=== PATIENT | female | born 1995 | race Caucasian/White ===

== ENCOUNTER 2016-09-25 08:06 | Outpatient (CLI) ==
[2015-12-07 09:37] VITALS: BMI 25.4
[2016-09-25 09:10] LABS: BASOPHILS % (AUTO) 0.7 % (0.0-3.0); EOSINOPHILS # (AUTO) 0.4 K/ul (0.0-0.7); EOSINOPHILS % (AUTO) 7.1 % (0.0-7.0); HEMOGLOBIN 11.3 g/dl (12.0-16.0); IMMATURE GRANULOCYTE % (AUTO) 0.2 % (0.0-5.0); LYMPHOCYTES # (AUTO) 1.8 K/uL (0.60-3.4); LYMPHOCYTES % (AUTO) 32.1 (10.0-50.0); MEAN CORPUSCULAR HEMOGLOBIN 27.3 pg (27.0-31.0); MEAN CORPUSCULAR HGB CONC 33.2 (31.8-35.4); MEAN CORPUSCULAR VOLUME 82.1 fl (81.0-99.0); MONOCYTES # (AUTO) 0.4 K/uL (0.4-2.0); MONOCYTES % (AUTO) 7.5 (0-10); NEUTROPHILS # (AUTO) 2.9 K/ul (2.0-6.9); NEUTROPHILS % (AUTO) 52.4; PLATELET COUNT 301 10^3/uL (140-440); RED BLOOD COUNT 4.14 10^6/ul (4.20-5.40); WHITE BLOOD COUNT 5.61 K/ul (4.6-10.2)
[2016-09-25 09:57] LABS: ALBUMIN 3.6 g/dL (3.4-5.0); ALBUMIN/GLOBULIN RATIO 1.09; BILIRUBIN,TOTAL 0.38 mg/dL (0.00-1.20); BUN/CREATININE RATIO 13.84; CALCIUM 9.2 mg/dL (8.2-10.2); CHOL/HDL RATIO 4.1 (4.5-5.5); CREATININE 0.65 mg/dL (0.60-1.30); TOTAL PROTEIN 6.9 g/dL (6.4-8.2)
--- NOTE | 2016-09-25 16:30 | MRI ---
EXAM: MRI lumbar spine without IV contrast. DATE: 09/25/2016. HISTORY: Low back pain. TECHNIQUE: Sagittal and axial T1W and T2W sequences of the lumbar spine along with sagittal IR and coronal T2W sequences were obtained using 1.2 Brianne magnet. No IV contrast. COMPARISON: Thoracolumbar scoliosis series [address] abdomen/pelvis 07 May 2012. FINDINGS: There are five [id number] lumbar vertebra. Alignment of the lumbar spine is normal. No acute lumbar fracture, subluxation, osseous malignancy, or pars interarticularis defect is iden tified. Lumbar vertebrae normal in height. Bone marrow signal is normal. Intervertebral discs are normal in height. No sacral fracture or stress reaction is apparent. SI joints are unremarkable. Conus medullaris terminates at L1-2. Visible spinal cord is normal. No retroperitoneal lymphadenopathy, paraspinal mass, or aortic aneurysm is detected. Paraspinal mus culature is symmetric bilaterally. Visible portions of the liver, gallbladder, spleen, adrenal glan ds and kidneys are normal. No bowel obstruction or neoplasm is evident. Segmental analysis: T11-12: Normal. T12-L1: Normal. L1-2: Normal. L2-3: Normal. L3-4: Normal. L4-5: Minimal disc bulge appears cause minor/mild bilateral foraminal narrowing. No central canal stenosis. L5-S1: Normal, except for minimal left foraminal narrowing due to short pedicles. IMPRESSIONS: 1. L-spine minor foraminal narrowing at L4-5 and L5-S1. No definitive nerve compression. 2. No lumbar spine central canal stenosis.
== END 2016-09-25 08:07 ==
LOC: RAD 08:06
PROVIDERS: ATTEND Nurse Practitioner Family
DX: M79.604 Pain in right leg (principal); M54.10 Radiculopathy, site unspecified; M54.5 Low back pain
CPT/HCPCS: 36415; 80053; 80061; 84443; 85025

== ENCOUNTER 2016-11-02 14:00 | Outpatient (RCR) ==
[2015-12-07 09:37] VITALS: BMI 25.4
--- NOTE | 2016-10-16 10:37 | RS.OPPTEV2 ---
Date of Note: 10/15/16 Visit #: 1 Date of Evaluation: 10/15/16 Payer Source: Medicaid Treatment Diagnosis: Low back pain History of Condition/Mechanism of Injury:: Patient reports low back and LE pain began with her first in 2014. States less than a year later, her second she had even worse pain. Prior Level of Function.....Patient was independent with: ADL's, Self Care, Work /Vocation, Caregiving, Ambulation/Mobility, Community Integration/Access Functional Limitations: Sleep, ADL's, Lifting, Sitting, Standing, Bending, Ambulation, Community Access/Integration Current Subjective/complaints:: Patient reports low back pain and aching into bilateral LE's. States leg discomfort goes all the way down to her feet. 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 Reports prolonged standing increases her pain and after being on her feet all day at work, she is ready to cry. States pain usually increases around 1-2 pm and then continues into the evening. States she does not have much time without pain. She has tried using a heating pad. She denies any tingling or numbness into the LE's. States she has noticed the feeling of weakness in her legs with prolonged standing. States she cannot tolerate laying on her back at night, has to lay on her side. States back pain limits her ability to sleep through the night. Medical History Surgical History: Tonsillectomy Smoking Status: Never smoker Diagnostic Testing/Imaging:: MRI lumbar spine w/o contrast. Date of service 09/25. Impression: "1. L-spine minor foraminal narrowing at L4-5 and L5-S1. No definitive nerve compression. 2. No lumbar spine central canal stenosis." Hx Home Medications: Tramadol, Neurontin Patient's Goals: Her goal is to get relief of back and LE pain. Pain Assessment - Pain Description Pain Location: low back and legs Pain Description: Aching, Chronic Current Pain Intensity: 4/10 Worst Pain Intensity: 10/10 Functional Outcome Measure Oswestry LBP: 56 - G Codes & Severity Modifier G Codes & Modifier: Na Source of G Code score: NA Observation - Observation Posture: Forward Head, Rounded Shoulders, Decreased Lumbar Lordosis Gait - Gait Pattern General Gait Pattern Observation: No Deviations/Normal - ROM Comments: Lumbar flexion, extension, and bilateral sidebending is WFL's. Demonstrates good mobility at lumbar spine. Patient reports increased discomfort in low back with extension. Bilateral LE AROM is WFL's. - Strength Comments: Trunk strength 4+/5. Bilateral LE strength is 5/5 throughout. - Special Tests KRISTAL Test: Negative Left, Negative Right SLR Test: Negative Left, Negative Right Seated Dural Stretch Test: Negative Left, Negative Right SI Joint Compression: Negative SI Joint Distraction: Negative Palpation Comments:: Patient reports no significant tenderness along the lumbar paraspinals, over the lumbar spine, SI joints, or superior gluteal musculature. Sensation - Sensation Right Lower Extremity: Intact/Normal Left Lower Extremity: Intact/Normal Additional Comments: Additional Comments: Bilateral SLR to 30-35 degrees. Leg lengths in long sitting and supine appear to be equal. Interventions - Exercise/Activities/Manual Therapy Exercises/Activities: Patient instructed in HS stretch, Piriformis stretch, and lower trunk rotation stretch for home. Manual Therapy: NA HOME EXERCISE PROGRAM: HS stretch, Piriformis stretch, and lower trunk rotation stretch - Charges Total Direct Minutes: 48 mins Total Treatment Time: 48 mins Procedures billed for this date of service:: EVAL Low X 3 Assessment Assessment: Patient presents to therapy with a diagnosis of chronic low back pain, lumbar foraminal stenosis, and bulging lumbar disc. She reports low back and LE pain. Describes pain more of an ache, rather than shooting pain. She demonstrates no symptoms today of disc related symptoms or SI joint dysfunction. She exhibits marked limitation of HS length bilaterally. She will benefit from stretching to bilateral HS and hips to decrease stress on the lumbar spine and enable her to tolerate standing activities with less pain. She will also benefit from from spinal strengthening and education of back safety. Patient Education: Education of diagnosis, Body/Joint mechanics, Home Exercise Program, Education of Plan of Care Rehab Potential: Good Short Term Goals Goal #1: Patient independent and compliant with HEP. Goal to be met by: 10/30/16 Goal #2: Bilateral SLR to 40-45 degrees. Goal to be met by: 10/30/16 Goal #3: LE pain decreased to occasional. Goal to be met by: 10/30/16 Prison Goals Goal #1: Pt knows HEP and to continue exercises to maintain functional level. Goal to be met by: 11/30/16 Goal #2: Score on Oswestry LBP scale improved to 26. Goal to be met by: 11/30/16 Goal #3: Pt will tolerate standing at work a full shift with minimal low back pain. Goal to be met by: 11/30/16 Goal #4: Pt to demonstrate good awareness of back safety and body mechanics. Goal to be met by: 11/30/16 Plan - Treatment to be Provided Procedures: Therapeutic Exercises, Therapeutic Activity, Manual Therapy, Patient Education Modalities: Electrical Stimulation, Ultrasound/Phonophoresis, Cryotherapy, Hot Packs, Mechanical Traction (lumbar) - Treatment Plan Frequency: 3 X week Duration: 4 weeks ORDER # VISITS AND/OR THROUGH DATE: 11/30/16 - Treatment Code (1) Low back pain Qualifiers: Chronicity: chronic Back pain laterality: bilateral Sciatica presence: unspecified whether sciatica present Qualified Description: Chronic bilateral low back pain, with sciatica presence unspecified Qualifier Code(s): (M54.5) Low back pain (2) Lumbar foraminal stenosis Comments: M99.83
--- NOTE | 2016-10-19 11:55 | RS.CXNS ---
Date of scheduled appointment: 10/19/16 Type: Cancel (Patient calls to cancel appointment. Does not give reason.)
--- NOTE | 2016-10-22 09:40 | RS.OPPTDN ---
Subjective Date of Note: 10/22/16 Visit #: 2 Date of Evaluation: 10/15/16 Payer Source: Medicaid Treatment Diagnosis: Low back pain Current Subjective/complaints:: Patients reports performing stretches seemd to aggravate pain. States she has more discomfort in the LE's than the lowback. States she notices an increase in pain at the end of the day, due to standing at work. Pain Assessment - Pain Description Pain Location: low back and legs Pain Description: Aching, Chronic Current Pain Intensity: 10 - Treatment Modality: Ultrasound Parameters/Method Applied: [id number] @ 1.5w/cm2 to the bilateral lumbar paraspinals prior to EX. Patient Position: Right Sidelying Interventions - Exercise/Activities/Manual Therapy Exercises/Activities: Assisted with stretching of hamstrings, piriformis, lower trunk rotation, and SKTC. Isometric hip adduction. Isometric hip flexion. Glut sets, abdominal sets. Total minutes of Exercise: 15mins Manual Therapy: NA HOME EXERCISE PROGRAM: HS stretch, Piriformis stretch, and lower trunk rotation stretch, isometric hip add, isometric hip flexion, glut sets, abd sets. - Charges Total Direct Minutes: 27mins Total Treatment Time: 30mins Procedures billed for this date of service:: US, EX Assessment: Patient with continued discomfort in LB and LE's, appears to be due to trunk weakness and long periods of standing at work. Patient Education: Education of diagnosis, Body/Joint mechanics, Home Exercise Program, Home Safety Comments: Patietn education of dx, body and spinal mechanics, and safe lifting. Patient demonstrates compliance with HEP?: Yes Short Term Goals Goal #1: Patient independent and compliant with HEP. Goal to be met by: 10/30/16 Progress towards Goal:: Progressing Goal #2: Bilateral SLR to 40-45 degrees. Goal to be met by: 10/30/16 Goal #3: LE pain decreased to occasional. Goal to be met by: 10/30/16 Product Director Goals Goal #1: Pt knows HEP and to continue exercises to maintain functional level. Goal to be met by: 11/30/16 Goal #2: Score on Oswestry LBP scale improved to 26. Goal to be met by: 11/30/16 Goal #3: Pt will tolerate standing at work a full shift with minimal low back pain. Goal to be met by: 11/30/16 Goal #4: Pt to demonstrate good awareness of back safety and body mechanics. Goal to be met by: 11/30/16 Plan PLAN OF CARE EXPIRES ON:: 11/30/16 ORDER # VISITS AND/OR THROUGH DATE: 11/30/16 PLAN: Progress Exercises (Continue modalities and progress exercise to reduce pain and increase functional activity level.)
--- NOTE | 2016-10-27 11:38 | RS.CXNS ---
Date of scheduled appointment: 10/27/16 Type: Cancel (Patient calls to cancel, no reason given. States she will attend next scheduled appointment on 10/30/16.)
--- NOTE | 2016-10-30 09:14 | RS.CXNS ---
Date of scheduled appointment: 10/30/16 Type: No Show
--- NOTE | 2016-11-02 15:35 | RS.OPPTDN ---
Subjective Date of Note: 11/02/16 Visit #: 3 Date of Evaluation: 10/15/16 Payer Source: Medicaid Treatment Diagnosis: Low back pain Current Subjective/complaints:: Patient says she thinks the exercises have been irritating her back. She says that she is not sure which one, but seems like her legs are really bothering her today. She says prolonged standing is the most aggravating to her. Pain Assessment - Pain Description Pain Location: low back and legs Pain Description: Aching, Chronic Current Pain Intensity: 5/10 - Treatment Modality: Ultrasound Parameters/Method Applied: continuous @ 1.5 w/cm2 x 12 mins to bilateral lumbar paraspinals Patient Position: Right Sidelying Interventions - Exercise/Activities/Manual Therapy Exercises/Activities: Assisted with stretching of hamstrings, piriformis, lower trunk rotation, and SKTC. Patient performs pillow squeezes. 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 Total minutes of Exercise: 15 Manual Therapy: NA HOME EXERCISE PROGRAM: HS stretch, Piriformis stretch, and lower trunk rotation stretch, isometric hip add, isometric hip flexion, glut sets, abd sets. - Charges Total Direct Minutes: 27 Total Treatment Time: 27 Procedures billed for this date of service:: u/s, ex Assessment: Patient experiencing increased pain to back and legs post exercise at last session. Gentler stretching today and easing back into trunk stability. Discussed better body mechanics and HEP/posture. Patient Education: Body/Joint mechanics, Home Exercise Program Short Term Goals Goal #1: Patient independent and compliant with HEP. Goal to be met by: 10/30/16 Progress towards Goal:: Progressing Goal #2: Bilateral SLR to 40-45 degrees. Goal to be met by: 10/30/16 Goal #3: LE pain decreased to occasional. Goal to be met by: 10/30/16 Prison Goals Goal #1: Pt knows HEP and to continue exercises to maintain functional level. Goal to be met by: 11/30/16 Goal #2: Score on Oswestry LBP scale improved to 26. Goal to be met by: 11/30/16 Goal #3: Pt will tolerate standing at work a full shift with minimal low back pain. Goal to be met by: 11/30/16 Goal #4: Pt to demonstrate good awareness of back safety and body mechanics. Goal to be met by: 11/30/16 Plan PLAN OF CARE EXPIRES ON:: 11/30/16 ORDER # VISITS AND/OR THROUGH DATE: 11/30/16 PLAN: Progress Exercises
== END 2016-11-07 ==
PROVIDERS: ATTEND Nurse Practitioner Family
DX: M54.5 Low back pain (principal); M99.83 Other biomechanical lesions of lumbar region; M51.26 Other intervertebral disc displacement, lumbar region

== ENCOUNTER 2017-02-03 22:14 | Outpatient (CLI) ==
[2016-09-25 08:10] VITALS: BMI 25.4
[2017-02-03 22:23] LABS: BILIRUBIN,URINE Negative (NEGATIVE); KETONES,URINE Negative (NEGATIVE); LEUKOCYTE ESTERASE ,URINE 2+ (NEGATIVE); NITRITE,URINE Negative (NEGATIVE); PH,URINE 6.5 (5-9); PROTEIN,URINE Negative (NEGATIVE); URINE, BLOOD 1+ (NEGATIVE)
[2017-02-03 22:33] LABS: ADD URINE MICROSCOPIC YES; BACTERIA,URINE TRACE (NOT PRESENT)
[2017-02-03 22:40] LABS: ALANINE AMINOTRANSFERASE 17 U/L (12-78); ALBUMIN 4.3 g/dL (3.4-5.0); ALBUMIN/GLOBULIN RATIO 1.08; ALKALINE PHOSPHATASE 91 U/L (42-98); ANION GAP 12.8; ASPARTATE AMINO TRANSFERASE 16 U/L (15-37); BILIRUBIN,TOTAL < 0.3 mg/dL (0.00-1.20); BLOOD UREA NITROGEN 7 mg/dL (7-18); BUN/CREATININE RATIO 10.44; CARBON DIOXIDE 25 mmol/L (21-32); CHLORIDE 107 mmol/L (98-107); CREATININE 0.67 mg/dL (0.60-1.30); GLUCOSE 78 mg/dL (70-110); POTASSIUM 3.8 mmol/L (3.5-5.10); SODIUM 141 mmol/L (136-145); TOTAL PROTEIN 8.3 g/dL (6.4-8.2)
== END 2017-02-03 22:15 | disposition home or self-care (01) ==
LOC: NONPT 22:14
PROVIDERS: ATTEND Nurse Practitioner Family
DX: Z20.2 Contact with and (suspected) exposure to infections with a predominantly sexual mode of transmission (principal)
CPT/HCPCS: 80053; 80074; 81001; 86592; 86631; 86695; 86696; 86701; 87086; 87800

== ENCOUNTER 2017-02-25 16:07 | Outpatient (CLI) ==
[2016-09-25 08:10] VITALS: BMI 25.4
== END 2017-02-25 16:08 | disposition home or self-care (01) ==
LOC: LAB 16:07
PROVIDERS: ATTEND Family Medicine
DX: R50.9 Fever, unspecified (principal)
CPT/HCPCS: 87804

== ENCOUNTER 2017-03-30 00:13 | Emergency (ER) ==
[2017-03-30 00:22] VITALS: BP 119/78; TEMP 99; BMI 24.5
[2017-03-30] MEDS ORDERED: ZOFRAN ODT PO STA (00:45)
--- NOTE | 2017-03-30 00:46 | ED.PDOC ---
General ED Provider: Dr. ARIADNE LAUREN Chief Complaint: Nausea/Vomiting Stated Complaint: Patient states she has vomited 3 times this evening, Denies any abdominal pain. Time Seen by Physician: 00:43 Mode of Arrival: Walk-In Information Source: Patient Exam Limitations: No limitations Primary Care Provider: [facility] Nursing and Triage Documentation Reviewed and Agree: Yes Reviewed sepsis parameters & appropriate labs ordered?: No System Inflammatory Response Syndrome: Not Applicable Sepsis Protocol: For patient's 13 years and over: Temp is 96.8 and below OR 101 and greater Pulse >90 BPM Resp >20/minute Acutely Altered Mental Status Are patient's symptoms suggestive of a new infection, such as: -Pneumonia -Skin, Soft Tissue -Endocarditis -UTI -Bone, Joint Infection -Implantable Device -Acute Abdominal Infection -Wound Infection -Meningitis -Blood Stream Catheter Infection -Unknown System Inflammatory Response Syndrome: Not Applicable GI Complaint Exam - Vomiting/Diarrhea Complaint/Exam Onset/Duration: 1 day Symptoms Are: Still present Episodes of Vomiting over last 24 Hours: 3 Initial Severity: Moderate Current Severity: Mild Character of Vomiting: Reports: Non-bilious Aggravating: Reports: Food Alleviating: Reports: Clear liquids Associated Signs and Symptoms: Denies: Dizziness, Light-headedness, Melena, Hematemesis, Fever, Abdominal pain, Cramping Menses: Regular Recent Positive Test: No Use of Oral Contraceptives: No Use of Depoprovera: No Compliant With Contraceptive Use: No Non-GI Risk Factors: Reports: None Surgical Obstruction Risk Factors: Reports: None Related Surgical History: Reports: None Abdominal Findings: Present: None Kussmaul Respirations Present: No Differential Diagnoses: Gastritis, Viral Gastroenteritis Review of Systems - Review Of Systems Constitutional: Reports: No symptoms Eyes: Reports: No symptoms Ears, Nose, Mouth, Throat: Reports: No symptoms Respiratory: Reports: No symptoms Cardiac: Reports: No symptoms GI: Reports: Nausea, Poor appetite, Vomiting : Reports: No symptoms Musculoskeletal: Reports: No symptoms Skin: Reports: No symptoms Neurological: Reports: No symptoms Endocrine: Reports: No symptoms Hematologic/Lymphatic: Reports: No symptoms All Other Systems: Reviewed and Negative Past Medical History - Past Medical History Previously Healthy: Yes Endocrine: Reports: None Cardiovascular: Reports: None Respiratory: Reports: None Hematological: Reports: None Gastrointestinal: Reports: None Genitourinary: Reports: None Neuro/Psych: Reports: None Musculoskeletal: Reports: None Cancer: Reports: None Last Menstrual Period: 1 WEEK AGO - Surgical History General Surgical History: Reports: Tonsillectomy - Family History Family History: Reports: Unknown - Social History Smoking Status: Never smoker Hx Substance Use: No Alcohol Screening: None - Immunizations Tetanus Shot up to Date: Yes Physical Exam - Physical Exam Appearance: Ill-appearing, Well-nourished Ill-appearing: Mild Pain Distress: Mild Eyes: AMMON, EOMI, Conjunctiva clear ENT: Ears normal, Nose normal, Oropharynx normal Neck: Supple Respiratory: Airway patent, Breath sounds clear, Breath sounds equal, Respirations nonlabored Cardiovascular: RRR, Pulses normal, No rub, No murmur GI/: Soft, Nontender, No masses, Bowel sounds normal, No Organomegaly Musculoskeletal: Normal strength, ROM intact, No edema, No calf tenderness Skin: Warm, Dry, Normal color Neurological: Sensation intact, Motor intact, Reflexes intact, Cranial nerves intact, Alert, Oriented Psychiatric: Affect appropriate, Mood appropriate Critical Care Note - Critical Care Note Total Time (mins): 0 Course - Course Orders, Labs, Meds: Orders Category Date Time Status Ondansetron [Zofran Odt] MEDS 03/30/17 00:45 Discontinued 4 mg PO ONCE STA Medications Discontinued Medications Generic Name Dose Route Start Last Admin Trade Name Calvinq PRN Reason Stop Dose Admin Ondansetron HCl 4 mg 03/30/17 00:45 03/30/17 00:52 Zofran Odt PO 03/30/17 00:46 4 mg ONCE STA Administration Vital Signs: Temp Pulse Resp BP Pulse Ox 03/30/17 00:14 99 F 90 18 119/78 98 Departure - Departure Time of Disposition: 00:46 Disposition: HOME SELF-CARE Discharge Problem: Nausea, Vomiting Instructions: Acute Nausea and Vomiting (ED) Condition: Stable Pt referred to PMD for follow-up: Yes IPMP verified?: No Additional Instructions: Push fluids, Take medications as prescribed as needed for nausea. Follow up with PCP if not better in 3 days Clear liquid diet for 24 hours then advance as tolerated. Prescriptions: Ondansetron HCl [Zofran Tab] 4 mg PO Q8H PRN #14 tablet PRN Reason: Nausea / Vomiting Allergies/Adverse Reactions: Allergies codeine Adverse Reaction (Verified 03/30/17 00:50) Latex, Natural Rubber Adverse Reaction (Verified 03/30/17 00:50) Home Medications: Ambulatory Orders Etonogestrel [Nexplanon] 68 mg SQ d 08/17/16 Ondansetron HCl [Zofran Tab] 4 mg PO Q8H PRN #14 tablet 03/30/17 Disposition Discussed With: Patient, Family
== END 2017-03-30 01:00 | disposition home or self-care (01) ==
LOC: ED 00:13
DX: R11.2 Nausea with vomiting, unspecified (principal)
CPT/HCPCS: 99282

== ENCOUNTER 2022-05-19 16:20 | Observation (INO) ==
[2022-05-19] MEDS ORDERED: TYLENOL PO ONE (17:07)
[2022-05-19] MEDS ORDERED: SODIUM CHLORIDE 1,000 ML IV STA (17:07)
--- NOTE | 2022-05-19 17:10 | ED.PDOC ---
General ED Provider: Dr. REBECCA GONZALEZ MD Chief Complaint: Fever Stated Complaint: mild to mod fever today, no NV, no cough, +runny nose, +sore throat, no lethargy, +body aches Time Seen by Provider: 05/19/22 16:40 Information Source: Patient Primary Care Provider: DOC FUNES MD Nursing and Triage Documentation Reviewed and Agree: Yes Does patient meet sepsis criteria?: No System Inflammatory Response Syndrome: Not Applicable Sepsis Protocol: For patient's 13 years and over: Temp is 96.8 and below OR 101 and greater Pulse >90 BPM Resp >20/minute Acutely Altered Mental Status Are patient's symptoms suggestive of a new infection, such as: -Pneumonia -Skin, Soft Tissue -Endocarditis -UTI -Bone, Joint Infection -Implantable Device -Acute Abdominal Infection -Wound Infection -Meningitis -Blood Stream Catheter Infection -Unknown Review of Systems Review Of Systems Constitutional: Reports Fever and Malaise Eyes: Denies Vision change Ears, Nose, Mouth, Throat: Reports Throat pain Respiratory: Denies Short of air Cardiac: Denies Chest pain GI: Denies Abdominal pain or Vomiting : Denies Frequency Musculoskeletal: Reports Muscle pain Skin: Denies Cyanosis Neurological: Denies Cognitive dysfunction All Other Systems: Other [facility] Medical History Restless legs syndrome Sinusitis, acute STD (female) Family History Grandfather/Grandmother Influenza A Diabetes 20 CHILD No problems noted. 20 CHILD No problems noted. Mother No problems noted. Social History Smoking and tobacco status: Never smoker Second hand smoke exposure: No Alcohol intake: never Substance use type: does not use Mai/buddhist: NONE Special mai needs: No Agree to transfusion: Yes Adopted: No Caregiver/support person: No Foster care: No Household members: children Housing: house Lives independently: Yes Daycare: no daycare Number of children: 3 Number of grandchildren: 0 Highest education level completed: high school graduate Financial difficulty paying for basics: not very hard service: No assisted: No Current occupational status: employed Current occupation: [employer] Pets and animals: Yes Leisure activites: other History of recent travel: No Sexually active: Yes Do you think of yourself as: straight/heterosexual Current gender identity: female Seatbelt use: always Helmet use: No Drives intoxicated or rides with intoxicated ups driver: No Water heater temperature set < 120 degrees: Yes Working smoke detector in home: Yes Fire extinguisher in home: No Carbon monoxide detector in home: Yes Firearms in home: No Surgical History Status post myringotomy with insertion of tube Status post tonsillectomy Status post tonsillectomy and adenoidectomy Female Reproductive History Menstrual Hx Hysterectomy: No Hx Tubal Ligation: Yes Physical Exam Physical Exam Appearance: Reports No pain distress Ill-appearing: Mild Pain Distress: None Eyes: Reports EOMI and Conjunctiva clear ENT: Reports Rhinorrhea Neck: Supple Respiratory: Reports Airway patent, Breath sounds clear and Breath sounds equal Cardiovascular: Reports RRR GI/: Reports Soft and Nontender Musculoskeletal: Reports ROM intact and No edema Skin: Reports Warm and Dry Neurological: Reports Alert and Oriented Psychiatric: Reports Affect appropriate Interpretation Radiology Interpretation Radiology Interpretation By: Radiologist Radiology Results: No acute changes Exam Interpreted: CXR Critical Care Note Critical Care Note Total Critical Care Time (mins): 0 Course Course 05/19/22 17:20 05/19/22 17:20 Orders, Labs, Meds: Lab Review 05/19/22 05/19/22 17:20 17:45 WBC 15.03 H RBC 4.28 Hgb 12.4 Hct 37.4 MCV 87.4 MCH 29.0 MCHC 33.2 RDW Coeff of Kiarra 11.9 Plt Count 316 Immature Gran % (Auto) 0.4 Neut % (Auto) 89.6 H Lymph % (Auto) 4.1 L Irion % (Auto) 5.1 Eos % (Auto) 0.4 Baso % (Auto) 0.4 Neut # (Auto) 13.5 H Lymph # (Auto) 0.6 Irion # (Auto) 0.8 Eos # (Auto) 0.1 Baso # (Auto) 0.1 Immature Gran # (Auto) 0.1 Sodium 136.9 Potassium 3.70 Chloride 101.9 Carbon Dioxide 26.2 Anion Gap 12.50 BUN 8.2 Creatinine 0.51 L Estimated GFR (MDRD) 147.00 BUN/Creatinine Ratio 16.07 Glucose 119.3 H Lactic Acid 0.88 Calcium 9.09 Total Bilirubin 0.54 AST 23.6 ALT 19.2 Alkaline Phosphatase 74.2 Total Protein 7.69 Albumin 4.59 Globulin 3.10 Albumin/Globulin Ratio 1.48 Serum , Qual Negative Urine Color Yellow Urine Clarity Slightly Urine pH 8.5 Ur Specific Hyde 1.020 Urine Protein 1+ H Urine Glucose (UA) Negative Urine Ketones Negative Urine Blood Trace-intact H Urine Nitrite Negative Urine Bilirubin Negative Urine Urobilinogen 1.0 H Ur Leukocyte Esterase 2+ H Urine Microscopic RBC 5-10 Urine Microscopic WBC 20-30 Ur Squamous Epith Cells 20-30 Urine Bacteria 1+ Urine Mucus 2+ SARS CoV-2 RNA Rapid SOLEDAD Negative Orders Category Date Time Status BLOOD CULTURE Stat LAB 05/19/22 18:39 Ordered CBC W/ AUTO DIFF Stat LAB 05/19/22 17:20 Completed CMP [COMPREHENSIVE METABOLIC PANEL] Stat LAB 05/19/22 17:20 Completed HCG QUALITATIVE [SERUM ] Stat LAB 05/19/22 17:20 Completed LACTIC ACID Stat LAB 05/19/22 17:20 Completed RAPID STREP SCREEN [MOLECULAR GROUP A STREP] Stat LAB 05/19/22 17:45 Completed SARS COV-2 RNA RAPID SOLEDAD Stat LAB 05/19/22 17:45 Completed URINALYSIS C & S IF INDICATED Stat LAB 05/19/22 17:45 Completed URINE CULTURE Stat LAB 05/19/22 17:45 Received 1 gm/50 ml IV Daily Edilia MEDS 05/20/22 09:00 Ordered Ceftriaxone/D5w 1 gm Premix [Rocephin 1 gm/50 ml D5w] 1 gm in 50 ml IV DAILY Acetaminophen [Tylenol] MEDS 05/19/22 17:07 Discontinued 650 mg PO ONCE ONE Sodium Chloride 0.9% [Sodium Chloride] 1,000 ml MEDS 05/19/22 17:07 Discontinued IV BOLUS CHEST, 1V AP ONLY Stat RADS 05/19/22 17:07 Completed Medications Discontinued Medications Generic Name Dose Route Start Last Admin Trade Name Freq PRN Reason Stop Dose Admin Acetaminophen 650 mg 05/19/22 17:07 05/19/22 17:42 Acetaminophen 325 Mg Tablet PO 05/19/22 17:08 650 mg ONCE ONE Administration Sodium Chloride 1,000 mls @ 1,000 mls/hr 05/19/22 17:07 05/19/22 18:14 Sodium Chloride IV 05/19/22 18:06 1,000 mls/hr BOLUS STA Administration Vital Signs: Temp Pulse Resp BP Pulse Ox 05/19/22 16:32 102.2 F H 103 H 20 118/78 98 Discharge Plan Discharge Patient Disposition: PLACED OBSERVATION Discharge Problem: Fever, Leukocytosis Prescriptions: No Action dextromethorphan-guaifenesin 30-600 mg tablet extended release 12 hr 1 tab PO Q12H PRN (Reason: cough) Qty: 14 0RF benzonatate 200 mg capsule 200 mg PO BID-TID PRN (Reason: cough) Qty: 30 0RF Did you review [place] [employer] OUT CLERK for ALL controlled substances?: Not Applicable ED Provider: REBECCA GONZALEZ Condition: Stable Physician Progress Note: differential includes viral syndrome, admit to obs hospitalist []
[2022-05-19 17:31] LABS: BASOPHILS # (AUTO) 0.1 K/uL (0-0.2); BASOPHILS % (AUTO) 0.4 % (0.0-3.0); EOSINOPHILS # (AUTO) 0.1 K/ul (0.0-0.7); EOSINOPHILS % (AUTO) 0.4 % (0.0-7.0); HEMATOCRIT 37.4 % (37.0-47.0); HEMOGLOBIN 12.4 g/dl (12.0-16.0); IMMATURE GRANULOCYTE # (AUTO) 0.1 (0.0-1.0); IMMATURE GRANULOCYTE % (AUTO) 0.4 % (0.0-5.0); LYMPHOCYTES # (AUTO) 0.6 K/uL (0.60-3.4); LYMPHOCYTES % (AUTO) 4.1 (10.0-50.0); MEAN CORPUSCULAR HGB CONC 33.2 (31.8-35.4); MEAN CORPUSCULAR VOLUME 87.4 fl (81.0-99.0); MONOCYTES # (AUTO) 0.8 K/uL (0.4-2.0); MONOCYTES % (AUTO) 5.1 (0-10); NEUTROPHILS # (AUTO) 13.5 K/ul (2.0-6.9); NEUTROPHILS % (AUTO) 89.6 % (42.2-75.2); PLATELET COUNT 316 10^3/uL (140-440); RDW COEFFICIENT OF VARIATION 11.9 % (11.6-14.8); RED BLOOD COUNT 4.28 10^6/ul (4.20-5.40); WHITE BLOOD COUNT 15.03 K/ul (4.6-10.2)
[2022-05-19 17:42] LABS: ALANINE AMINOTRANSFERASE 19.2 U/L (0-35); ALBUMIN 4.59 g/dL (3.5-5.0); ALKALINE PHOSPHATASE 74.2 U/L (38-126); ASPARTATE AMINO TRANSFERASE 23.6 U/L (14-36); BILIRUBIN,TOTAL 0.54 mg/dL (0.2-1.3); BLOOD UREA NITROGEN 8.2 mg/dL (7-17); CALCIUM 9.09 mg/dL (8.4-10.2); CARBON DIOXIDE 26.2 mmol/L (22-30.0); CHLORIDE 101.9 mmol/L (98-107); CREATININE 0.51 mg/dL (0.60-1.30); GLUCOSE 119.3 mg/dL (74-106); POTASSIUM 3.7 mmol/L (3.5-5.1); SODIUM 136.9 mmol/L (134.5-145); TOTAL PROTEIN 7.69 g/dL (6.3-8.2)
[2022-05-19 17:45] LABS: SERUM PREGNANCY NEGATIVE (NEGATIVE)
[2022-05-19 18:02] LABS: BILIRUBIN,URINE Negative (NEGATIVE); CLARITY,URINE Slightly (CLEAR); COLOR,URINE Yellow (YELLOW); GLUCOSE, URINE (UA) Negative (NEGATIVE); KETONES,URINE Negative (NEGATIVE); LEUKOCYTE ESTERASE ,URINE 2+ (NEGATIVE); NITRITE,URINE Negative (NEGATIVE); PH,URINE 8.5 (5-9); PROTEIN,URINE 1+ (NEGATIVE); URINE, BLOOD Trace-intact (NEGATIVE)
[2022-05-19 18:08] LABS: SQUAMOUS EPITHELIAL CELL,UR 20-30 (0-5); URINE WBC, MICROSCOPIC 20-30 (0-2)
[2022-05-19 18:09] LABS: BACTERIA,URINE 1+ (NOT PRESENT); MUCUS,URINE 2+ (NOT PRESENT)
--- NOTE | 2022-05-19 18:14 | DI ---
EXAM: CHEST RADIOGRAPH TECHNIQUE: Single frontal chest radiograph. HISTORY: Cough and fever. COMPARISON: 03/30/2022. FINDINGS: The lungs are clear. The heart size is normal. There is no pleural effusion. There is no pneumothorax. IMPRESSION: 1. Normal chest radiograph.
[2022-05-19 18:35] LABS: SARS COV-2 RNA RAPID NAAT NEGATIVE (NEGATIVE)
[2022-05-19] MEDS: SODIUM CHLORIDE 1,000 ML IV SCH (20:12)
[2022-05-19 20:52] VITALS: BMI 26.2
[2022-05-19] MEDS ORDERED: ROCEPHIN 1 GM/50 ML D5W 1 GM/50 ML BAG IV SCH (21:15)
[2022-05-19] MEDS: TYLENOL PO PRN (21:32)
[2022-05-20] MEDS ORDERED: ZOFRAN 4 MG/2 ML IVP PRN (05:06)
[2022-05-20 05:17] LABS: BASOPHILS # (AUTO) 0.1 K/uL (0-0.2); BASOPHILS % (AUTO) 0.4 % (0.0-3.0); EOSINOPHILS % (AUTO) 0.2 % (0.0-7.0); HEMATOCRIT 35.5 % (37.0-47.0); HEMOGLOBIN 11.4 g/dl (12.0-16.0); IMMATURE GRANULOCYTE # (AUTO) 0.1 (0.0-1.0); IMMATURE GRANULOCYTE % (AUTO) 0.4 % (0.0-5.0); LYMPHOCYTES % (AUTO) 7.7 (10.0-50.0); MEAN CORPUSCULAR HEMOGLOBIN 28.7 pg (27.0-31.0); MEAN CORPUSCULAR HGB CONC 32.1 (31.8-35.4); MEAN CORPUSCULAR VOLUME 89.4 fl (81.0-99.0); MONOCYTES # (AUTO) 0.7 K/uL (0.4-2.0); MONOCYTES % (AUTO) 5.6 (0-10); NEUTROPHILS # (AUTO) 10.7 K/ul (2.0-6.9); NEUTROPHILS % (AUTO) 85.7 % (42.2-75.2); PLATELET COUNT 298 10^3/uL (140-440); RDW COEFFICIENT OF VARIATION 12.2 % (11.6-14.8); RED BLOOD COUNT 3.97 10^6/ul (4.20-5.40); WHITE BLOOD COUNT 12.41 K/ul (4.6-10.2)
[2022-05-20] MEDS: TYLENOL PO PRN ×2 (05:20→09:46)
[2022-05-20 05:30] LABS: ALANINE AMINOTRANSFERASE 17.2 U/L (0-35); ALBUMIN 3.99 g/dL (3.5-5.0); ALKALINE PHOSPHATASE 59.9 U/L (38-126); BILIRUBIN,TOTAL 0.35 mg/dL (0.2-1.3); CALCIUM 8.58 mg/dL (8.4-10.2); CARBON DIOXIDE 26.8 mmol/L (22-30.0); CHLORIDE 104.5 mmol/L (98-107); CREATININE 0.51 mg/dL (0.60-1.30); GLUCOSE 117.7 mg/dL (74-106); POTASSIUM 3.76 mmol/L (3.5-5.1); SODIUM 136.2 mmol/L (134.5-145); TOTAL PROTEIN 6.74 g/dL (6.3-8.2)
--- NOTE | 2022-05-20 08:51 | PCM.PROG ---
Date Seen by Provider: 05/20/22 Time Seen by Provider: 08:40 Subjective: Patient feeling better. Temp curve trending downward. Objective: Vitals: T=98.8 F, P=62, R=19, LX=646/62, SPO2=99 Patient is alert, oriented and appears well. HEENT: [] Neck: [] Lungs: [] Clear and BS equal. CVS: [] RRR Abdomen: [] Soft, nontender. Extremities: [] Neurological: [] Skin: [] Lab/Tests/Diagnostic Imaging: [] (1) Acute urinary tract infection: Status: Acute Code(s): N39.0 - Urinary tract infection, site not specified SNOMED Code(s): 108128701 Assessment: C&S pending. Plan: Will discharge and have patient follow up with PCP.
--- NOTE | 2022-05-20 08:59 | PCM.DC ---
Final Diagnosis: acute urinary tract infection Physical Exam Appearance: Ill-appearing, No pain distress and Well-nourished Ill-appearing: Mild Pain Distress: None Eyes: Conjunctiva clear ENT: Nose normal and Oropharynx normal Neck: Supple Respiratory: Airway patent, Breath sounds clear and Breath sounds equal Cardiovascular: RRR, No rub and No murmur GI/: Soft, Nontender, No masses, Bowel sounds normal and No Organomegaly Musculoskeletal: Normal strength, ROM intact and No edema Skin: Warm, Dry and Normal color Neurological: Alert and Oriented Psychiatric: Affect appropriate and Mood appropriate (1) Acute urinary tract infection: Status: Acute Code(s): N39.0 - Urinary tract infection, site not specified SNOMED Code(s): 788787761 Reason for Hospitalization: acute urinary tract infection with fever and leukocytosis Prognosis/Condition at Discharge: condition at discharge was good Medications at Discharge: Patient discharged on cephalexin as well as same medications as at admission Education Provided to Patient and Family: urinary tract infection Follow-ups: Follow up with your primary care provider in one week. Discharge Disposition: Home Hospital Course: Patient admitted with leukocytosis and fever. She was found to have an acute UTI. She defervesced over the next 24 hours and her WBC count improved as well. She was discharged on keflex. Plan: Follow up with your primary care provider in one week.
[2022-05-20] MEDS ORDERED: ROCEPHIN 1 GM/50 ML D5W 1 GM/50 ML BAG IV SCH ×3 (09:00→21:00)
[2022-05-20] MEDS: SODIUM CHLORIDE 1,000 ML IV SCH (09:47)
[2022-05-20] MEDS ORDERED: CLARITIN PO SCH (10:00)
[2022-05-20 11:08] VITALS: BP 114/68; TEMP 99.4
== END 2022-05-20 11:25 | disposition home or self-care (01) ==
LOC: ED 16:20 → MEDSURG A 16:20
PROVIDERS: ADMIT Emergency Medicine Emergency Medical Services; ATTEND Surgery
DX: R50.9 Fever, unspecified; N39.0 Urinary tract infection, site not specified; D72.828 Other elevated white blood cell count; Z20.822 Contact with and (suspected) exposure to COVID-19